=== PATIENT | male | born 1980 | race Caucasian/White ===

== ENCOUNTER 2020-03-22 18:02 | Emergency (ER) | payer OTHER ==
[~2020-03-22] VITALS: Ht 177.8 cm; Wt 108.9 kg
[~2020-03-22 18:02] MED LIST: FLOMAX0.4 MG PO; IBUPROFEN600 MG PO; MIRALAX17 GM PO; NORCO 5-325 TA1 EACH PO; ONDANSETRON ODT4 MG SL; PROMETHAZINE HC25 M1 PO
[2020-03-22] MEDS ORDERED: MORPHINE SULFAT15 MG PO (18:52)
[2020-03-22] MEDS ORDERED: NAPROSYN500 MG PO (18:52)
[2020-03-22] MEDS ORDERED: ONDANSETRON ODT4 MG SL (18:52)
== END 2020-03-22 19:21 | disposition home or self-care (01) ==
LOC: ED 18:02
DX: S89.82XA Other specified injuries of left lower leg, initial encounter (principal); Z87.442 Personal history of urinary calculi; Z88.5 Allergy status to narcotic agent; W19.XXXA Unspecified fall, initial encounter
CPT/HCPCS: 73560; 99283-25

== ENCOUNTER 2023-04-28 06:22 | Observation (INO) | payer OTHER ==
[~2023-04-28] VITALS: Ht 177.8 cm; Wt 105.4 kg
[~2023-04-28 06:22] MED LIST changes: +MORPHINE SULFAT15 MG PO; +NAPROSYN500 MG PO
[2023-04-28 07:34] LABS: BASOPHILS 0.4 % (0-2); HEMATOCRIT 44.5 % (35.0-50.0); HEMOGLOBIN 15.1 g/dL (12.0-18.0); LYMPHOCYTES 29.9 % (24-44); MCH 30.7 (27-36); MCHC 33.8 g/dl (30-36); MCV 90.7 fl (81-99); MONOCYTES 6.2 % (0-12); NEUTROPHILS 60.5 % (39-80); PLATELET COUNT 251 K/uL (140-440); RBC 4.91 M/ul (4.3-5.7)
[2023-04-28 07:57] LABS: ALBUMIN 4.3 g/dL (3.4-5.0); ALBUMIN/GLOBULIN RATIO 1.3 (1.1-2.4); ANION GAP 15.2 (7-21); BILIRUBIN, TOTAL 0.6 ng/dL (0.2-1.0); BUN/CREATININE RATIO 18.26 (6.0-28.6); CALCIUM 9.3 mg/dL (8.5-10.1); CREATININE, SERUM 1.04 mg/dL (0.70-1.30); POTASSIUM 4.2 mmol/L (3.5-5.1); PROTEIN, TOTAL 7.6 g/dL (6.4-8.2)
--- NOTE | 2023-04-28 08:45 | NUR ---
PT TO FLOOR WITH ALIZA MEIER. MOVED TO BED WITH SHEET. STARTED CHECK IN PROCESS AND HX. MRI SCREENING COMPLETED. REMAINS NPO. GIVEN SWABS. HUNG LR. PAIN 6\10. REPORT GIVEN TO ALIZA PARKER.
[2023-04-28 08:57] VITALS: BP 148/73
--- NOTE | 2023-04-28 09:03 | NUR ---
VERBAL BEDSIDE REPORT RECEIVED FROM ALIZA CARRASCO. PT RESTS IN BED, LEMON GLYCERIN SWABS AT BEDSIDE.
--- NOTE | 2023-04-28 09:36 | NUR ---
PT LEAVES WITH DIAGNOSITC IMAGING STAFF FOR MRI.
--- NOTE | 2023-04-28 10:40 | NUR ---
PT RETURNS FROM MRI, TRANSFERS SELF FROM [facility] TO [facility] WITH ASSIST. PT TOLERATES THIS WELL. LR INFUSION STARTED AT 85 ML/HR VIA IV IN LEFT HAND, PATENT, C/D/I. DILAUDID RECEIVED FOR PAIN, SEE eMAR. PT WIPED DOWN WITH CHLORHEXADINE WIPES. PT VOIDS USING URINAL, 175 MLS OF DARK YELLOW, CLEAR URINE PRODUCED. PT REMOVES CONTACT LENSES AND PLACES THEM IN THE CASE PROVIDED AT THE BEDSIDE. CALL LIGHT AND BELONGINGS IN REACH. EDUCATION PROVIDED ON NPO STATUS AND IMPORTANCE OF NOT EATING OR DRINKING ANYTHING, PT VERBALIZES UNDERSTANDING. ICE TO LEFT KNEE. NO REQUESTS AT THIS TIME.
--- NOTE | 2023-04-28 12:51 | NUR ---
PT TAKEN TO DAY SURGERY BY OR, RN.
[2023-04-28] MEDS ORDERED: HYDROMORPHONE HC2 MG PO (15:01)
[2023-04-28] MEDS ORDERED: GABAPENTIN300 MG PO (15:01)
[2023-04-28 15:31] VITALS: BP 126/72
--- NOTE | 2023-04-28 15:31 | NUR ---
PT RETURNS FROM SURGERY. S/P LEFT QUAD TENDON REPAIR. VSS. PT ALERT AND AWAKE. VISITOR IN ROOM X1. CMS INTACT TO BLE. DRESSING TO LLE IS C/D/I. BRACE IN PLACE OVER KNEE. ICE THERAPY PAD IN PLACE OVER KNEE. PT DENIES PAIN OR NAUSEA AT THIS TIME. PT ORIENTED TO ROOM AND USE OF CALL LIGHT. CALL LIGHT AND BELONGINGS IN REACH. NO REQUESTS AT THIS TIME. VERBAL REPORT RECEIVED FROM ALIZA LITTLE.
--- NOTE | 2023-04-28 15:48 | NUR ---
04/28/23 1548 Isabela Hutson 1459 PATIENT INTO PACU BAY 5. REPORT RECIEVED FROM BLAIR HOWARD. PATIENT NONREACTIVE. PATIENT ON 6 LITERS VIA MASK. BREATHING EQUAL AND UNLABORED. OXYGEN SATURATIONS ABOVE 90%. SINUS TACH ON TELE. PATIENT LEFT LOWER EXTERMITY PULSES FELT STRONG. CAP REFILL LESS THAN 2 SECONDS. SURGICAL SITE CLEAN, DRY AND INTACT. CRYO CUFF APPLIED. PATIENT EXTERMITY ELEVATED. SCD'S ON. IVF INFUSING. 1505 PATIENT REACTIVE. PATIENT DENIES PAIN OR BEING NAUSEATED AT THIS TIME. PATIENT BREATHING EQUAL AND UNLABORED. OXYGEN SATURATIONS ABOVE 90% ON 6 LITERS VIA MASK. SINUS TACH ON TELE. CRYO CUFF APPLIED. EXTERMITY ELEVATED.
--- NOTE | 2023-04-28 16:16 | NUR ---
INTO SEE PATIENT. PATIENT SO ZULEIMA AT BEDSIDE. PATIENT STATES THEY LIVE IN A 1 LEVEL HOME WITH 3 STEPS IN. PATIENT HAS BEEN PREVIOUSLY INDEPENDANT WITH ADLS, DOES NOT REQUIRE DME OR REQUIRE FINANCIAL ASSISTANCE. PATIENT STATES HE WAS WALKING INTO WORK THIS AM WHEN THE INJURY OCCURED. PATIENT DOES HAVE A WALKER AND CRUTCHES AVAILABLE IF NEEDED. NO FURTHER QUESTION OR NEED FROM THE PATIENT AND SO AT THIS TIME. WILL FOLLOW UP WITH PATIENT DURING HIS STAY.
[2023-04-28 16:31] VITALS: BP 120/77
--- NOTE | 2023-04-28 16:32 | NUR ---
VSS. ICE WATER AND PUDDING PROVIDED. DRESSING TO LLE DRESSING REMAINS C/D/I, NO DRAINAGE NOTED. KNEE IMMOBILIZER REMAINS IN PLACE WITH ICE THERAPY PAD. CMS INTACT. PT CONTINUES TO DENIES PAIN OR NAUSEA AT THIS TIME.
--- NOTE | 2023-04-28 16:46 | NUR ---
PT EATS 100% OF PUDDING, TOLERATES THIS WELL. REQUESTS MORE PUDDING, PROVIDED. EDUCATION ON CARE PLAN AND PAIN MANAGEMENT PROVIDED. PT VERBALIZES UNDERSTANDING.
--- NOTE | 2023-04-28 16:57 | NUR ---
PT EATING 100% OF SECOND PUDDING, TOLERATES THIS WELL, DENIES NAUSEA. ICE WATER AT BEDSIDE. IV INFUSING LR, IV SITE C/D/I, NO REDNESS OR SWELLING NOTED.
[2023-04-28 17:30] VITALS: BP 131/61
--- NOTE | 2023-04-28 17:34 | NUR ---
VSS. PT SITS UP IN BED EATING A MEAL. DENIES NAUSEA. CMS REMAINS INTACT TO LLE. DRESSING REMAINS C/D/I. PAIN CONTROLLED. NO REQUESTS AT THIS TIME.
--- NOTE | 2023-04-28 17:59 | NUR ---
PT VOIDS 300CC OF CLEAR YELLOW URINE. PHARMACY VISITS PT'S ROOM TO DISCUSS PRESCRIPTIONS. PT SITS UP IN BED, TALKS ON CELL PHONE. NO REQUESTS AT THIS TIME.
[2023-04-28 18:28] VITALS: BP 112/72
--- NOTE | 2023-04-28 19:14 | NUR ---
PT ABLE TO MOVE SELF INTO SITTING POSITION AT BEDSIDE. TEACHING ON USE OF CRUTCHES PROVIDED. PT ABLE TO STAND ON RIGHT LEG AND DEMONSTRATE AMBULATION WITH CRUTCHES USING TOE TOUCH ONLY TECHNIQUE. PT STATES HE HAS 3 STEPS TO GET INTO HIS HOME, STATES THERE ARE RAILS WELL. DISCUSSED TECHNIQUE FOR USING CRUTCHES ON STAIRS, PT FEELS CONFIDENT ABOUT GETTING UP THE STAIRS AT HOME. IV SALINE LOCKED. PT DRESSES SELF WITH ASSIST FROM S/O. VERBAL REPORT PROVIDED TO ALIZA VARGAS.
--- NOTE | 2023-04-28 19:26 | NUR ---
REPORT RECEIVED FROM DAY SHIFT RN. PT SITTING ON SIDE OF BED ALERT AND ORIENTED. IV DC'D BY DAY SHIFT STOCK WORKER AND DELIVERER WNL. DISCHARGE INSTRUCTIONS GIVEN TO PT. PT/SIGNIFICANT OTHER VERBALIZE UNDERSTANDING. PT ABLE TO TRANSFER SELF TO WHEELCHAIR WITH MINIMAL ASSIST USING FWW AND TTWB LEFT FOOT. PT LEFT WITH ALL BELONGINGS VIA WHEELCHAIR WITH STOCK WORKER AND DELIVERER TO FRONT OF LOBBY WHERE S/O IS WAITING IN PERSONAL VEHICLE.
--- NOTE | 2023-05-02 07:56 | OR ---
[facility] [address], [place] [address] Signed DATE OF OPERATION: 04/28/2023 SURGEON: Юлия Mariano MD PREOPERATIVE DIAGNOSIS: Quadriceps rupture, left. POSTOPERATIVE DIAGNOSIS: Quadriceps rupture, left. PROCEDURE PERFORMED: Quad repair, left. ENGINEERING DOCUMENT CONTROL CLERK: None. ANESTHESIA: General. BLOOD LOSS: 100 mL. TOURNIQUET TIME: Zero. BRIEF HISTORY: Harpreet is a 42-year-old gentleman who was at work walking when he stumbled and his knee popped and he went down. He is unable to bear weight or straighten his knee. He presented to the ER this morning where physical exam was consistent with the rupture of the quadriceps tendon. I was contacted, I am the way into the hospital and saw the patient. Because he was n.p.o. and the injury was fresh, it was felt to be best to go ahead and proceed with an MRI and surgery today. Risks, benefits, and alternatives were discussed with him and he elected to proceed. DESCRIPTION OF PROCEDURE: Once consent was obtained, he was taken to the operating room. After adequate anesthesia was placed on operating room table, all downside pressure points well padded. The leg was then prepped and draped in a standard sterile fashion. Standard anterior midline incision was made and carried through skin and subcutaneous tissue. The defect was immediately obvious. There was tears of both medial and lateral retinaculum pretty Electronically Signed By: ЮЛИЯ MARIANO MD 05/02/23 0756 PATIENT NAME: HARPREET DAMIAN OPERATIVE REPORT DATE OF : 78 REPORT #: [id number] PHYSICIAN: ЮЛИЯ MARIANO MD PCP: PREMA DOUGHERTY PAC REPORT IS CONFIDENTIAL AND NOT TO BE RELEASED WITHOUT AUTHORIZATION [facility] [address], [place] [address] Signed much completely. The wound was thoroughly examined and irrigated to remove blood clot. The tendons ends and the proximal edge of the patella were then cleaned of devitalized tissue. Once this was accomplished, the FiberTape was placed in a Krackow configuration and the quad tendon, leaving four strands at the distal end. Three drill holes were made in the patella and the two center sutures were taken down the center hole. The two outside edge sutures were taken out their respective holes. The knee was extended and the sutures were tied over the distal pole of the patella resulting in excellent apposition of the tendon to the proximal pole of patella. There was a small sleeve of tissue superficial to the main body of the tendon. This was then sutured down using #1 Vicryl as was the medial and lateral retinacular rents. All of these were repaired using independent #1 Vicryl. We then bent the knee to 90 degrees with no issues or gapping of the tendon repair. The wound was copiously irrigated with normal saline. The subcutaneous tissue was closed using 0-Stratafix and skin with afshan. The wound was then dressed with an Acticoat-7 dressing and ABDs and Patel wrap. He was placed in a hinged knee brace 0-20 degrees. Юлия Mariano MD BA/MODL /[id number] Copies: ~ Electronically Signed By: ЮЛИЯ MARIANO MD 05/02/23 0756 PATIENT NAME: HARPREET DAMIAN OPERATIVE REPORT DATE OF : 78 REPORT #: [id number] PHYSICIAN: ЮЛИЯ MARIANO MD PCP: PREMA DOUGHERTY PAC REPORT IS CONFIDENTIAL AND NOT TO BE RELEASED WITHOUT AUTHORIZATION
== END 2023-04-28 19:20 | disposition home or self-care (01) ==
LOC: ED 06:22 → MS 06:24
PROVIDERS: Emergency Medicine; ADMIT Specialist; ATTEND Specialist
PROC: 0LQM0ZZ Repair Left Upper Leg Tendon, Open Approach (ICD-10-PCS; principal; 2023-04-28 14:15)
DX: S76.192A Other specified injury of left quadriceps muscle, fascia and tendon, initial encounter (principal); X58.XXXA Exposure to other specified factors, initial encounter
CPT/HCPCS: 01320; 36415; 64447; 73560; 73721; 76942; 80053; 85025; 96374; 96375; 96376; 99284-25; A9270; C9803; G0378; J0131; J0690; J1100; J1170; J1885; J2001; J2250; J2405; J2704; J2795; J3010; J7121; U0002